=== PATIENT | female | born 1960 | race Caucasian/White ===

== ENCOUNTER 2018-03-27 12:13 | Emergency (ER) | payer BC ==
[~2018-03-27] VITALS: Ht 162.6 cm; Wt 79.3 kg
[2018-03-27 12:41] LABS: APPEARANCE CLOUDY ((CLEAR)); BILIRUBIN NEGATIVE; BLOOD NEGATIVE; COLOR AMBER ((YELLOW)); GLUCOSE (STRIP) NEGATIVE; KETONES NEGATIVE; LEUKOCYTES LARGE; NITRITE NEGATIVE; PROTEIN (STRIP) 30; SPECIFIC GRAVITY 1.027 (1.000-1.030)
[2018-03-27 12:59] LABS: EPITHELIAL CELLS 1+ /HPF; MUCUS 2+ /LPF; RED BLOOD CELLS NONE SEEN /HPF (0-5); WHITE BLOOD CELLS 20-30 /HPF (0-5)
[2018-03-27 13:00] LABS: BACTERIA 2+ /HPF; UCUL ADDED? YES
[2018-03-27 13:03] LABS: CHLORIDE 107 mEq/L (99-109); POTASSIUM 3.9 mEq/L (3.7-5.4); SODIUM 141 mEq/L (136-147)
[2018-03-27 13:05] LABS: GLUCOSE 111 mg/dL (70-99); TOTAL PROTEIN 7.5 g/dL (6.4-8.3)
[2018-03-27 13:07] LABS: TOTAL BILIRUBIN 0.5 mg/dL (0.0-1.0)
[2018-03-27 13:09] LABS: ALKALINE PHOSPHATASE 66 IU/L (3-129); CREATININE 0.8 mg/dL (0.6-1.3)
[2018-03-27 13:10] LABS: UREA NITROGEN (BUN) 11 mg/dL (9-23)
[2018-03-27 13:11] LABS: AST (GOT) 28 IU/L (2-34)
[2018-03-27 13:12] LABS: ALT (GPT) 13 IU/L (3-49)
[2018-03-27 13:19] LABS: GFR ESTIMATE (CALCULATED) > 59 mL/min/
[2018-03-27 13:23] LABS: HEMATOCRIT ND % (36.0-46.0); HEMOGLOBIN ND G/DL (11.9-15.5); MCH ND PG (29.0-34.0); MCHC ND G/DL (30.0-36.0); MCV ND FL (83-99); RBC DIS.WIDTH-CV ND % (11.8-14.6); RBC DIS.WIDTH-SD ND % (39-53); RED BLOOD COUNT ND M/uL (3.80-5.20); WHITE BLOOD COUNT ND K/uL (4.1-10.2)
[2018-03-27 13:24] LABS: NRBC (%) ND /100 WBC (0-0); PLATELET COUNT ND K/uL (156-360)
[2018-03-27 13:39] LABS: HEMATOCRIT 40.2 % (36.0-46.0); HEMOGLOBIN 13.1 G/DL (11.9-15.5); MCH 28.7 PG (29.0-34.0); MCHC 32.6 G/DL (30.0-36.0); PLATELET COUNT 298 K/uL (156-360); RBC DIS.WIDTH-CV 14.7 % (11.8-14.6); RBC DIS.WIDTH-SD 46.9 % (39-53); RED BLOOD COUNT 4.57 M/uL (3.80-5.20); WHITE BLOOD COUNT 8.6 K/uL (4.1-10.2)
[2018-03-27] MEDS ORDERED: CIPRO500 MG PO (14:26)
[2018-03-27 14:34] VITALS: BP 138/89
== END 2018-03-27 14:37 | disposition home or self-care (01) ==
LOC: EME 12:13
PROVIDERS: Physician Assistant
DX: N10 Acute pyelonephritis (principal); Z87.442 Personal history of urinary calculi; Z88.0 Allergy status to penicillin; Z98.84 Bariatric surgery status; Z90.49 Acquired absence of other specified parts of digestive tract
CPT/HCPCS: 74176; 80053; 81003; 85027; 87077; 87086; 87186; 99281; 99284

== ENCOUNTER 2018-04-19 00:22 | Emergency (ER) | payer SELFPAY ==
[~2018-04-19] VITALS: Ht 162.6 cm; Wt 79.2 kg
[~2018-04-19 00:22] MED LIST: CIPRO500 MG PO
[2018-04-19 02:13] VITALS: BP 109/67
== END 2018-04-19 02:14 | disposition home or self-care (01) ==
LOC: EME 00:22
PROC: 3E0234Z Introduction of Serum, Toxoid and Vaccine into Muscle, Percutaneous Approach (ICD-10-PCS; principal; 2018-04-19)
PROC: 0HQFXZZ Repair Right Hand Skin, External Approach (ICD-10-PCS; principal; 2018-04-19)
DX: S61.210A Laceration without foreign body of right index finger without damage to nail, initial encounter (principal); W26.8XXA Contact with other sharp object(s), not elsewhere classified, initial encounter; Y93.89 Activity, other specified; Y92.009 Unspecified place in unspecified non-institutional (private) residence as the place of occurrence of the external cause; Z23 Encounter for immunization; F90.9 Attention-deficit hyperactivity disorder, unspecified type; Z88.0 Allergy status to penicillin
CPT/HCPCS: 99281; 99284